=== PATIENT | female | born 1980 | race Caucasian/White ===

== ENCOUNTER 2017-09-05 16:36 | Emergency (ER) | payer MEDICAID ==
[~2017-09-05 16:36] MED LIST: CYCL-343 PO; ETON1VAG7 VG; MET500 PO; PER PO
[2017-09-05] MEDS ORDERED: ARMTHY90PT PO (16:48)
--- NOTE | 2017-09-05 16:53 | ER Report ---
History and Physical Time Seen By MD: 16:47 Hx. of Stated Complaint: PT REPORTS VOMITING, CHILLS, FEVER, GENERAL PAIN/"SORE BONES" HPI/ROS CHIEF COMPLAINT: Fever and vomiting HISTORY OF PRESENT ILLNESS: 36-year-old female patient presents to emergency room with complaint of fever and vomiting. Patient states that this started today. Patient states that she woke up and has had body aches, fever, chills and vomiting. She states anytime she is trying to drink anything she has vomited back up. She states that she does not have any abdominal pain, however she feels she does have some tenderness in her pancreas, liver. She states she also has some joint pains. 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 Patient has not taken any medication for this. REVIEW OF SYSTEMS: Respiratory: No cough, no dyspnea. Cardiovascular: No chest pain, no palpitations. Gastrointestinal: As noted above. Musculoskeletal: No back pain. Allergies: Coded Allergies: Sulfa (Sulfonamide Antibiotics) (Verified Allergy, Unknown, 09/05/17) Home Meds Active Scripts Ondansetron (ZOFRAN ODT) 4 Mg Tab.rapdis, 4 MG PO Q6H Y for NAUSEA/VOMITING, # 20 TAB.VERNON Prov:AR SHEEHAN [facility] 09/05/17 Reported Medications Thyroid (ARMOUR THYROID) 90 Mg Tab, 90 MG PO QDAY, TAB 09/05/17 Cyclobenzaprine Hcl (FLEXERIL) 10 Mg Tablet, 10 MG PO TID 09/04/12 Oxycodone/Acetaminophen (OXYCODONE/ACETAMINOPHEN 5MG/325 MG) 5 Mg/325 Mg Tab, 1 - 2 TAB PO Q6H 09/04/12 Discontinued Reported Medications Metformin Hcl (GLUCOPHAGE (OR EQUIV)) 500 Mg Tab, 500 MG PO BID 09/04/12 Etonogestrel/Ethinyl Estradiol (Nuvaring Vaginal Ring) 1 Vag.ring Vag.ring, 1 VAG.RING VG MONTHLY 09/04/12 Past Medical/Surgical History Patient has a past medical history of sleep apnea, PCOS, back pain, goiter. Patient has a surgical history of D&C, tonsillectomy. Reviewed Nurses Notes: Yes Hx Smoking: Yes Hx Substance Use Disorder: No Hx Alcohol Use: No Constitutional Vital Sign - Last 24 Hours 09/05/17 09/05/17 09/05/17 09/05/17 16:41 16:42 16:51 17:00 Temp 98.5 Pulse 119 112 Resp 12 B/P (MAP) 139/82 139/82 (101) 126/84 (98) Pulse Ox 96 94 O2 Delivery Room Air 09/05/17 09/05/17 09/05/17 09/05/17 17:06 17:21 17:36 17:51 Pulse 110 110 110 108 Pulse Ox 93 92 94 95 09/05/17 09/05/17 09/05/17 18:00 18:06 18:23 Pulse 109 B/P (MAP) 104/66 (79) 112/63 (79) Pulse Ox 96 Intake and Output 09/05/17 09/05/17 09/06/17 15:00 23:00 07:00 Intake Total 1000 ml Balance 1000 ml Physical Exam General Appearance: The patient is alert, has no immediate need for airway protection and no current signs of toxicity. ENT: Tympanic membranes are pearly-monae, auditory canals are patent, mucous membranes are moist. Respiratory: Chest is non tender, lungs are clear to auscultation. Cardiac: regular rate and rhythm Gastrointestinal: Abdomen is soft and non tender, no masses, bowel sounds are hypoactive. Musculoskeletal: Neck: Neck is supple and non tender. Extremities have full range of motion and are non tender. Skin: No rashes or lesions. DIFFERENTIAL DIAGNOSIS: After history and physical exam differential diagnosis was considered for nausea and vomiting including but not limited to gastroenteritis, gastritis, appendicitis, and medication side effect. Medical Decision Making Data Points Result Diagram: 09/05/17 1649 09/05/17 1649 Laboratory Hematology Test 09/05/17 16:49 09/05/17 17:05 Red Blood Count 5.22 M/uL (4.17-5.56) Mean Corpuscular Volume 86.9 fL (80.0-96.0) Mean Corpuscular Hemoglobin 30.0 pg (26.0-33.0) Mean Corpuscular Hemoglobin Concent 34.6 g/dL (32.0-36.0) Red Cell Distribution Width 14.1 % (11.5-14.5) Mean Platelet Volume 8.5 fL (7.2-11.1) Neutrophils (%) (Auto) 90.7 % (39.4-72.5) Lymphocytes (%) (Auto) 4.6 % (17.6-49.6) Monocytes (%) (Auto) 3.8 % (4.1-12.4) Eosinophils (%) (Auto) 0.7 % (0.4-6.7) Basophils (%) (Auto) 0.2 % (0.3-1.4) Nucleated RBC Relative Count (auto) 0.0 /100WBC Neutrophils # (Auto) 8.1 K/uL (2.0-7.4) Lymphocytes # (Auto) 0.4 K/uL (1.3-3.6) Monocytes # (Auto) 0.3 K/uL (0.3-1.0) Eosinophils # (Auto) 0.1 K/uL (0.0-0.5) Basophils # (Auto) 0.0 K/uL (0.0-0.1) Nucleated RBC Absolute Count (auto) 0.00 K/uL Urine Color Yellow Urine Clarity Clear Urine pH 5.0 pH (4.8-9.5) Urine Specific Marion 1.028 Urine Protein Negative mg/dL (NEGATIVE) Urine Glucose (UA) Negative mg/dL (NEGATIVE) Urine Ketones Trace mg/dL (NEGATIVE) Urine Blood Negative (NEGATIVE) Urine Nitrite Negative (NEGATIVE) Urine Bilirubin Negative (NEGATIVE) Urine Urobilinogen Negative mg/dL (0.2-1.9) Urine Leukocyte Esterase Negative (NEGATIVE) Urine RBC 1 /HPF (0-2/HPF) Urine WBC 1 /HPF (0-5/HPF) Urine Squamous Epithelial Cells Many /LPF (</=FEW) Urine Bacteria Negative /HPF (NONE-FEW) Urine Mucus None /HPF (NONE-FEW) Sodium Level 139 mmol/L (137-145) Potassium Level 3.5 mmol/L (3.5-5.0) Chloride Level 102 mmol/L (98-107) Carbon Dioxide Level 17 mmol/L (22-31) Blood Urea Nitrogen 9 mg/dl (7-18) Creatinine 0.80 mg/dl (0.52-1.04) Glomerular Filtration Rate Calc > 60.0 Random Glucose 120 mg/dl (75-110) Lactate 3.2 mmol/L (0.7-2.1) Calcium Level 9.5 mg/dl (8.4-10.2) Total Bilirubin 1.6 mg/dl (0.2-1.3) Aspartate Amino Transf (AST/SGOT) 23 U/L (0-35) Alanine Aminotransferase (ALT/SGPT) 27 U/L (0-56) Alkaline Phosphatase 56 U/L (0-126) Total Protein 7.3 gm/dl (6.3-8.2) Albumin 4.5 g/dl (3.5-5.0) Amylase Level < 30 U/L (0-110) Lipase 17 U/L (23-300) Human Chorionic Gonadotropin, Qual Negative (NEGATIVE) Influenza Virus Type A (PCR) Negative (NEGATIVE) Influenza Virus Type B (PCR) Negative (NEGATIVE) Chemistry Test 09/05/17 16:49 09/05/17 17:05 White Blood Count 8.9 k/uL (4.5-11.0) Red Blood Count 5.22 M/uL (4.17-5.56) Hemoglobin 15.7 g/dL (12.0-16.0) Hematocrit 45.4 % (34.0-47.0) Mean Corpuscular Volume 86.9 fL (80.0-96.0) Mean Corpuscular Hemoglobin 30.0 pg (26.0-33.0) Mean Corpuscular Hemoglobin Concent 34.6 g/dL (32.0-36.0) Red Cell Distribution Width 14.1 % (11.5-14.5) Platelet Count 181 K/uL (150-450) Mean Platelet Volume 8.5 fL (7.2-11.1) Neutrophils (%) (Auto) 90.7 % (39.4-72.5) Lymphocytes (%) (Auto) 4.6 % (17.6-49.6) Monocytes (%) (Auto) 3.8 % (4.1-12.4) Eosinophils (%) (Auto) 0.7 % (0.4-6.7) Basophils (%) (Auto) 0.2 % (0.3-1.4) Nucleated RBC Relative Count (auto) 0.0 /100WBC Neutrophils # (Auto) 8.1 K/uL (2.0-7.4) Lymphocytes # (Auto) 0.4 K/uL (1.3-3.6) Monocytes # (Auto) 0.3 K/uL (0.3-1.0) Eosinophils # (Auto) 0.1 K/uL (0.0-0.5) Basophils # (Auto) 0.0 K/uL (0.0-0.1) Nucleated RBC Absolute Count (auto) 0.00 K/uL Urine Color Yellow Urine Clarity Clear Urine pH 5.0 pH (4.8-9.5) Urine Specific Marion 1.028 Urine Protein Negative mg/dL (NEGATIVE) Urine Glucose (UA) Negative mg/dL (NEGATIVE) Urine Ketones Trace mg/dL (NEGATIVE) Urine Blood Negative (NEGATIVE) Urine Nitrite Negative (NEGATIVE) Urine Bilirubin Negative (NEGATIVE) Urine Urobilinogen Negative mg/dL (0.2-1.9) Urine Leukocyte Esterase Negative (NEGATIVE) Urine RBC 1 /HPF (0-2/HPF) Urine WBC 1 /HPF (0-5/HPF) Urine Squamous Epithelial Cells Many /LPF (</=FEW) Urine Bacteria Negative /HPF (NONE-FEW) Urine Mucus None /HPF (NONE-FEW) Glomerular Filtration Rate Calc > 60.0 Lactate 3.2 mmol/L (0.7-2.1) Calcium Level 9.5 mg/dl (8.4-10.2) Total Bilirubin 1.6 mg/dl (0.2-1.3) Aspartate Amino Transf (AST/SGOT) 23 U/L (0-35) Alanine Aminotransferase (ALT/SGPT) 27 U/L (0-56) Alkaline Phosphatase 56 U/L (0-126) Total Protein 7.3 gm/dl (6.3-8.2) Albumin 4.5 g/dl (3.5-5.0) Amylase Level < 30 U/L (0-110) Lipase 17 U/L (23-300) Human Chorionic Gonadotropin, Qual Negative (NEGATIVE) Influenza Virus Type A (PCR) Negative (NEGATIVE) Influenza Virus Type B (PCR) Negative (NEGATIVE) Urinalysis Test 09/05/17 16:49 Urine Color Yellow Urine Clarity Clear Urine pH 5.0 pH (4.8-9.5) Urine Specific Marion 1.028 Urine Protein Negative mg/dL (NEGATIVE) Urine Glucose (UA) Negative mg/dL (NEGATIVE) Urine Ketones Trace mg/dL (NEGATIVE) Urine Blood Negative (NEGATIVE) Urine Nitrite Negative (NEGATIVE) Urine Bilirubin Negative (NEGATIVE) Urine Urobilinogen Negative mg/dL (0.2-1.9) Urine Leukocyte Esterase Negative (NEGATIVE) Urine RBC 1 /HPF (0-2/HPF) Urine WBC 1 /HPF (0-5/HPF) Urine Squamous Epithelial Cells Many /LPF (</=FEW) Urine Bacteria Negative /HPF (NONE-FEW) Urine Mucus None /HPF (NONE-FEW) EKG/Imaging Imaging INDICATION: vomiting, abdominal pain. DATE: 09/05/2017 5:53 PM. TECHNIQUE: ACUTE ABDOMEN SERIES 3 VIEW COMPARISON: None FINDINGS: The chest is clear. No free air under the diaphragm. Normal sized stomach bubble. Nonobstructive bowel gas pattern. Normal volume of stool and gas within the colon. IMPRESSION: Radiograph likely unremarkable abdomen and chest. Report Dictated By: Vern Liu MD at 09/05/2017 5:53 PM Report E-Signed By: Vern Liu MD at 09/05/2017 5:55 PM ED Course/Re-evaluation ED Course Patient was admitted to exam room, history and physical were obtained. Differential diagnoses were considered. Examination patient does feel warm to the touch. She does not have any tenderness to the abdomen. An IV was started, CBC, CMP, lactate were drawn. Patient had an elevated lactate of 3.2, however she did have normal vital signs, although she was tachycardic at 108 beats per minute. CBC showed a white count of 8000 with a left shift 90% neutrophils. Urinalysis was unremarkable, electrolytes were also unremarkable. An acute abdominal x-ray was done which showed no acute findings. I discussed the results with the patient. I believe that we are looking at a viral gastroenteritis. Patient received a liter of normal saline. I believe lactate is elevated secondary to dehydration. We'll go ahead and discharge patient home at this time. She is return to the emergency room if condition worsens. She is to increase fluid intake, patient was prescribed Zofran to help with the nausea and vomiting. Patient verbalized understanding and agreement with plan. Decision to Disposition Date: September 05, 2017 Decision to Disposition Time: 18:17 Depart Departure Latest Vital Signs Vital Signs Date Time Temp Pulse Resp B/P (MAP) Pulse Ox O2 Delivery O2 Flow Rate FiO2 09/05/17 18:23 112/63 (79) 09/05/17 18:06 109 96 09/05/17 16:41 98.5 12 Room Air Impression: Primary Impression: Gastroenteritis Condition: Improved Disposition: HOME OR SELF-CARE New Scripts Ondansetron (ZOFRAN ODT) 4 Mg Tab.rapdis 4 MG PO Q6H Y for NAUSEA/VOMITING, #20 TAB.VERNON Prov: AR SHEEHAN 09/05/17 Patient Instructions: Gastroenteritis (ED) Additional Instructions: Increase fluid intake. Get plenty of rest. Follow up with your primary care provider in the next week. Return to the ER if condition worsens. You may take Pepto-Bismol as needed for abdominal pain. AR SHEEHAN September 05, 2017 16:53
[2017-09-05] MEDS ORDERED: NS(*) 0.9% 1000 ML BAG 1,000 ML IV ONE (16:58)
[2017-09-05] MEDS ORDERED: ONDANSETRON 4 MG/2 ML VIAL IVP ONE (17:00)
[2017-09-05 17:18] LABS: PLATELET COUNT, AUTOMATED 181 K/uL (150-450)
--- NOTE | 2017-09-05 18:00 | RADIOLOGY IMAGING REPORT ---
FACILITY: [facility] - [place] PATIENT NAME: Es Reyna : 1980 MR: [id number] V: [id number] EXAM DATE: ORDERING PHYSICIAN: AR SHEEHAN TECHNOLOGIST: Location: [facility] - [place] Patient: Es Reyna : 1980 Visit/Account:[id number] Date of Sevice: 09/05/2017 INDICATION: vomiting, abdominal pain. DATE: 09/05/2017 5:53 PM. TECHNIQUE: ACUTE ABDOMEN SERIES 3 VIEW COMPARISON: None FINDINGS: The chest is clear. No free air under the diaphragm. Normal sized stomach bubble. Nonobstru ctive bowel gas pattern. Normal volume of stool and gas within the colon. IMPRESSION: Radiograph likely unremarkable abdomen and chest. Report Dictated By: Vern Liu MD at 09/05/2017 5:53 PM Report E-Signed By: Vern Liu MD at 09/05/2017 5:55 PM WSN:[id number]
[2017-09-05] MEDS ORDERED: ONDA4TAB PO (18:16)
[2017-09-05 18:23] VITALS: BP 112/63
== END 2017-09-05 18:25 | disposition home or self-care (01) ==
LOC: ER 16:40
DX: K52.9 Noninfective gastroenteritis and colitis, unspecified (principal)
CPT/HCPCS: 74022; 81001; 82150; 83605; 83690; 84703; 85025; 87502; 96361; 96374; 99284; J2405; J7030; 82040; 82247; 82310; 82374; 82435; 82565; 82947; 84075; 84132; 84155; 84295; 84450; 84460; 84520

== ENCOUNTER 2018-01-25 01:22 | Outpatient (RCR) | payer MEDICAID ==
[~2018-01-25 01:22] MED LIST changes: +ARMTHY90PT PO; +BUPR-474 PO; +ONDA4TAB PO; +OXYC-865 PO; +THY60 PO; +TIZA2CAP3 PO; +TRAM-420 PO
[2018-01-25 09:57] LABS: INR 0.96
--- NOTE | 2018-01-25 11:12 | RADIOLOGY IMAGING REPORT ---
FACILITY: [facility] PATIENT NAME: Es Reyna : 1980 MR: [id number] V: [id number] EXAM DATE: ORDERING PHYSICIAN: FREDI LEBRON TECHNOLOGIST: [facility] Patient: Es Reyna : 1980 Visit/Account:[id number] Date of Sevice: 01/25/2018 THYROID HISTORY: Thyroid goiter with thyroid toxicosis COMPARISON: None. FINDINGS: SIZE: Enlarged Right lobe: 7.8 x 4.1 x 5 cm Left lobe: 3.5 x 1.4 x 1.2 cm Isthmus: 4 mm PARENCHYMA: Diffusely heterogeneous on the left NODULES: Right lobe: * In the mid to superior pole the right lobe there is a 5.4 x 4.7 x 4.5 cm complex solid nodule with lobular margins.. * Inferior aspect of the right lobe there is a 2.9 x 3.3 x 2.8 cm lobular hypoechoic mass Left lobe: * None discrete. Isthmus: * None discrete. VASCULARITY: Within normal limits. ADDITIONAL FINDINGS: None. IMPRESSION: There are two solid masses encompassing the enlarged right lobe. The largest is in the mid to superi or pole measuring 5.4 cm in diameter. The inferior pole mass measures 3.3 cm. Ultrasound-guided fin e-needle aspiration recommended of these two nodules Left lobe appears diffusely heterogeneous although discrete nodules not seen REFERENCE: 2015 [place] [employer] Management Guidelines for Adult Patients with Thyroid Nodules and D ifferentiated Thyroid Cancer: The [place] [employer] Guidelines Task Force on Thyroid Nodul es and Differentiated Thyroid Cancer. SONOGRAPHIC PATTERNS: * Benign: Purely cystic nodules (no solid component); estimated risk of malignancy <1 percent; no bi opsy recommended. * Very Low Suspicion: Spongiform or partially cystic nodules without any of the sonographic features described in low, intermediate, or high suspicion patterns; estimated risk of malignancy <3 percent; consider FNA at > 2 cm (Observation without FNA is also a reasonable option). * Low Suspicion: Isoechoic or hyperechoic solid nodule, or partially cystic nodule with eccentric so lid areas, without microcalcification, irregular margin or ETE (extra-thyroidal extension), or taller than wide shape; estimated risk of malignancy 5-10 percent; recommend FNA at >1.5 cm. * Intermediate Suspicion: Hypoechoic solid nodule with smooth margins without microcalcifications, E TE (extra-thyroidal extension), or taller than wide shape; estimated risk of malignancy 10-20 percent ; recommend FNA at > 1 cm. * High Suspicion: Solid hypoechoic nodule or solid hypoechoic component of a partially cystic nodule with one or more of the following features: irregular margins (infiltrative, microlobulated), microc alcifications, taller than wide shape, rim calcifications with small extrusive soft tissue component, evidence of ETE (extra-thyroidal extension); estimated risk of malignancy >70-90 percent; recommend FNA at > 1 cm. NOTES: * Although a sonographically suspicious subcentimeter thyroid nodule without evidence of extrathyroi jose extension or sonographically suspicious lymph nodes may be observed with close sonographic follow -up rather than pursuing immediate FNA, patient age and preference may modify decision-making. A > 50% interval increase in nodule volume and/or development of new suspicious sonographic features are felt to be a valid reasons for potential re-aspiration of a nodule previously shown to have benig n FNA cytology. Report Dictated By: Patricia Soliz MD at 01/25/2018 11:04 AM Report E-Signed By: Patricia Soliz MD at 01/25/2018 11:08 AM WSN:[email or web address]
--- NOTE | 2018-01-27 11:51 | RADIOLOGY IMAGING REPORT ---
FACILITY: [facility] - [place] PATIENT NAME: Es Reyna : 1980 MR: [id number] V: [id number] EXAM DATE: ORDERING PHYSICIAN: FREDI LEBRON TECHNOLOGIST: Location: [facility] - [place] Patient: Es Reyan : 1980 Visit/Account:[id number] Date of Sevice: 01/27/2018 Exam type: THYROID BIOPSY FINE NEEDLE ASP History: Two right-sided thyroid nodules Comparison: January 25, 2018. Findings: Informed consent was obtained. The right-sided the patient's neck was prepped and draped in usual st erile fashion. Local anesthesia was accomplished 1% lidocaine. Under sonographic guidance four 25-g auge FNA biopsies were obtained through each of the two dominant right thyroid nodules. The samples were given to the tomography technologist for processing. The procedure was accomplished without appa rent complication IMPRESSION: 1. Successful sonographically guided thyroid biopsy of two right-sided thyroid nodules Report Dictated By: Patricia Soliz MD at 01/27/2018 11:45 AM Report E-Signed By: Patricia Soliz MD at 01/27/2018 11:47 AM WSN:[email or web address]
[2018-02-08] MEDS ORDERED: implanon (11:54)
[2018-02-09] MEDS ORDERED: TIZA4CAP3 PO (08:17)
[2018-02-09] MEDS ORDERED: OXYC-870 PO (08:17)
[2018-02-09] MEDS ORDERED: THYR60TA25 PO (08:17)
[2018-02-12] MEDS ORDERED: OXYC20TA99 PO (06:46)
[2018-02-12] MEDS ORDERED: DOCU-416 PO (06:46)
== END 2018-03-01 ==
LOC: US 01:22 → EDSTATUS 14:02
PROVIDERS: ATTEND Surgery
DX: Z01.812 Encounter for preprocedural laboratory examination (principal); E04.0 Nontoxic diffuse goiter
CPT/HCPCS: 10022; 36415; 76536; 76942; 85610; 88104; 88172

== ENCOUNTER → 2018-02-09 | Outpatient (CLI) | payer MEDICAID ==
[~2018-02-09] MED LIST changes: +OXYC-870 PO; +THYR60TA25 PO; +TIZA4CAP3 PO; +implanon
--- NOTE | 2018-02-09 16:55 | RADIOLOGY IMAGING REPORT ---
FACILITY: [facility] - [place] PATIENT NAME: Es Reyna : 1980 MR: [id number] V: [id number] EXAM DATE: ORDERING PHYSICIAN: FRDEI LEBRON TECHNOLOGIST: Location: [facility] Patient: Es Reyna : 1980 Visit/Account:[id number] Date of Sevice: 02/09/2018 Exam type: NECK SOFT TISSUE History: Pre-op testing to look at goiter in relation to trachea Comparison: Thyroid ultrasound January 25, 2018. Findings: The trachea is markedly deviated towards the left. On the AP view the right lateral wall of the trac hea is deviated approximately 1.46 cm towards the left from midline. The uppermost portion of the tr achea demonstrates less mass effect although is also deviated towards the left with the right lateral wall deviated approximately 5.5 mm towards the left from midline. IMPRESSION: 1. Marked leftward deviation of the trachea from patient's enlarged thyroid goiter Report Dictated By: Patricia Soliz MD at 02/09/2018 4:47 PM Report E-Signed By: Patricia Soliz MD at 02/09/2018 4:52 PM WSN:[email or web address]
== END ==
LOC: RAD 15:52
PROVIDERS: ATTEND Surgery
DX: E04.0 Nontoxic diffuse goiter (principal)
CPT/HCPCS: 70360

== ENCOUNTER 2018-02-11 00:49 | Observation (INO) | payer MEDICAID ==
[2018-02-11] VITALS (8 sets, daily range): BP systolic 107–138; BP diastolic 63–90
[~2018-02-11] VITALS: Ht 170.2 cm; Wt 95.3 kg
[2018-02-11] MEDS ORDERED: MIDAZOLAM 2 MG/2 ML VIAL IVP PRN (11:00)
[2018-02-11] MEDS ORDERED: NORMOSOL R SOLN(*) 1000 ML BAG 1,000 ML IV PRN (11:00)
[2018-02-11] MEDS ORDERED: LIDOCAINE/SOD BICARB 8.4% SYR ID ONE (11:00)
[2018-02-11] MEDS ORDERED: FAMOTIDINE 20 MG TAB PO ONE (11:00)
[2018-02-11] MEDS ORDERED: ceFAZolin(*) 2GM/D5W 50ML 50 ML IVPB ONE (11:00)
[2018-02-11 11:51] LABS: PLATELET COUNT, AUTOMATED 233 K/uL (150-450)
[2018-02-11] MEDS ORDERED: fentaNYL CITR 250 MCG/5 ML AMP ONE ×4 (12:11→16:27)
[2018-02-11] MEDS ORDERED: LIDOCAINE 2% IV 100 MG/5ML SYR ONE (12:12)
[2018-02-11] MEDS ORDERED: PROPOFOL EMUL(*) 10MG/ML 20 ML 20 ML ONE ×2 (12:12→13:16)
[2018-02-11] MEDS ORDERED: KETAMINE HCL 200 MG/20 ML MDV ONE ×5 (13:24→17:29)
[2018-02-11] MEDS ORDERED: DEXAMETHASONE SOD 4 MG/ML VIAL ONE (13:28)
[2018-02-11] MEDS ORDERED: ROPIVACAINE 0.5% 20 ML VIAL ONE (13:29)
[2018-02-11] MEDS ORDERED: ONDANSETRON 4 MG/2 ML VIAL ONE ×2 (13:29→19:57)
[2018-02-11] MEDS ORDERED: GELATIN SPONGE 12-7MM ONE (13:29)
[2018-02-11] MEDS ORDERED: SUGAMMADEX SOD 500 MG/5 ML SDV ONE (13:32)
[2018-02-11] MEDS ORDERED: ACETAMINOPHEN(*)1000 MG/100 ML 100 ML IVPB ONE (14:37)
[2018-02-11] MEDS ORDERED: fentaNYL CITR 100 MCG/2 ML AMP ONE ×5 (18:09→19:47)
[2018-02-11] MEDS ORDERED: PROMETHAZINE 25 MG/ML 1 ML AMP ONE (18:46)
[2018-02-11] MEDS ORDERED: HYDROmorphone HCL 2 MG/ML SDV ONE (19:10)
[2018-02-11] MEDS ORDERED: FLUSH 10 ML SYR IVP PRN (19:15)
[2018-02-11] MEDS ORDERED: ONDANSETRON 4 MG/2 ML VIAL IVP PRN (19:15)
[2018-02-11] MEDS ORDERED: HYDROmorphone HCL 2 MG/ML SDV IVP PRN (19:15)
[2018-02-11] MEDS ORDERED: traMADol 50 MG TAB PO PRN (19:15)
[2018-02-11] MEDS ORDERED: NALOXONE HCL 0.4 MG/ML VIAL IVP PRN (19:15)
[2018-02-11 19:32] LABS: PLATELET COUNT, AUTOMATED 244 K/uL (150-450)
--- NOTE | 2018-02-11 19:36 | Post Operative Progress Note ---
Post Operative Progress Note Date: Feb 11, 2018 Time: 19:25 Surgeon: Efren Dictation number: [id number] Anesthesia: GETA by Dr. Sefl Pre-Op Diagnosis: Multinodule Goiter Post-Op Diagnosis: KWAN Findings: Very large, orange-size, right thyroid lobe; normal appearing left thyroid lobe Procedure(s): Total thyroidectomy Specimen Removed:(May be N/A): 1) left thyroid lobe 2) right thyroid lobe Complications: None Fluids: see anesthesia record UOP: 800mL Estimated Blood Loss: 650mL Date OP Note Dictated: Feb 11, 2018 Time OP Note Dictated: 19:27 FREDI LEBRON MD Feb 11, 2018 19:36
[2018-02-11] MEDS ORDERED: SCOPOLAMINE 1.5 MG PATCH TD ONE ×2 (20:03→20:05)
[2018-02-11] MEDS: NS(*) 0.9% 1000 ML BAG 1,000 ML IV PRN (20:20)
[2018-02-11] MEDS: MORPHINE 4 MG/ML SDV IVP PRN ×3 (20:22→22:50)
[2018-02-11] MEDS: FAMOTIDINE 20 MG TAB PO SCH (20:49)
[2018-02-11] MEDS: CALCIUM CARBONATE 600 MG TAB PO SCH (20:49)
[2018-02-11] MEDS: DOCUSATE SODIUM 100 MG CAP PO SCH (20:49)
--- NOTE | 2018-02-11 21:17 | OPERATIVE REPORT 1 ---
EVENT DATE: February 11, 2018 SURGEON: Morgan Schwartz MD ANESTHESIOLOGIST: Jace Self MD ANESTHESIA: General endotracheal anesthesia. PREOPERATIVE DIAGNOSIS Multinodular goiter. POSTOPERATIVE DIAGNOSIS Multinodular goiter. PROCEDURE PERFORMED Total thyroidectomy. COMPLICATIONS None. CONDITION Stable. BLOOD LOSS 650 mL URINE OUTPUT 800 mL SPECIMENS 1. Left thyroid lobe. 3. Right thyroid lobe. FINDINGS This patient had a very large, orange size right thyroid lobe that was pushing the trachea to the left. The left thyroid lobe appeared unremarkable. INDICATIONS This is a 37-year-old female who presented to my office with a very large thyroid which was immediately evident just upon looking at her and confirmed on exam. I had her sent for ultrasound-guided FNA biopsies of a couple thyroid nodules, and these were atypical and indeterminant. She was, however, having symptoms including feelings of compression on her airway and esophagus, and she was requesting to have her thyroid removed. DESCRIPTION OF PROCEDURE Patient was brought to the operating room and placed supine on the operating table. General endotracheal anesthesia was administered, and she was placed in a reclining beach chair configuration with her neck extended. The [facility] neuromonitoring system was set up, and the electrodes were inserted into her dermis after rubbing the skin with alcohol just below her sternal notch. The whole system was set up and tested to ensure it was functioning. Her neck was then prepped and draped in a sterile fashion. Timeout was completed. Then, I marked the skin in a skin crease just above the sternal notch, then anesthetized the skin in this area, and made a Carol-type 6 cm incision in this skin crease. I dissected through the dermis and subcutaneous fat and progressively dissected down through the platysma muscle and created subplatysmal flaps above the thyroid cartilage down to the sternal notch, and I divided the median raphe between the strap muscles. I then worked on the right thyroid lobe first and created the plane between the strap muscles and the thyroid lobe. The lobe was very big, and exposure was difficult in this patient. Ultimately, I divided the strap muscles from medial to lateral to open up more room to dissect. Ultimately, I was able to get around the lobe, and there was even a mediastinal component to the right lobe which I was able to free up just with blunt dissection without any problems. I divided the inferior pole vessels with a Harmonic scalpel, and also with some struggle identified the superior pole vessels, but was able to divide them with the Harmonic scalpel. After working for some time on the right lobe, I turned my attention to the left lobe and raised the strap muscles up off the left lobe, but also ended up dividing these in order to improve exposure because the right lobe was coming so far into the left side of her neck that there was not much room for me to retract the tissues out of the way to provide adequate exposure, but this was much improved by dividing the strap muscles. I then was able to get around the left lobe much easier than the right because it was a fairly normal-looking left lobe. I identified the inferior pole vessels which I divided with the Harmonic scalpel. I identified the superior pole vessels which I divided with the Harmonic scalpel. I progressively medialized the left lobe, but because the right lobe was so intrusive into the left side of her neck, ultimately in order to assist with the dissection on the left, I divided the isthmus just in front of the trachea. I then did also a combination of medial to lateral and lateral to medial dissection by dividing the ligament of Weber medially and also connecting the dissection from anterior to the trachea up around the superior pole. I used the nerve monitor multiple times throughout the case and identified the recurrent laryngeal nerve. I also identified the superior and inferior parathyroid glands, and these were left in situ and preserved in this patient on the left side. Ultimately, I was able to get around and remove the left thyroid lobe from the patient's neck. I then returned to my dissection on the right side and started a combination a medial to lateral and lateral to medial dissection with some struggle just due to the sheer size of the right thyroid lobe. I ultimately was able to get it freed up, and the nerve was identified on this side using the nerve monitor and visualization as well. The nerve was visualized on both sides. I did not definitively identify the parathyroid glands in her right neck, but did not worry so much about this as the superior and inferior glands were identified in the left neck. Ultimately, I was able to remove the gland. This was a fairly bloody case with diffuse oozing. At the end of the case with irrigation and drying of the neck, there was no bleeding anywhere, and it was stone cold dry, but the entire case was a struggle due to the size of her right thyroid lobe and due to the oozing all around the dissection planes around her right thyroid lobe. The right thyroid lobe was passed off the field and sent to Pathology. I irrigated and dried her neck and again confirmed that I visualized the recurrent laryngeal nerve on both sides and also the left superior and inferior parathyroid glands, and they looked perfused. I then placed a 10-Georgian round drain into her neck through the suprasternal skin, and this was sewn to the skin with a 2-0 silk suture. I then reapproximated the deep strap muscles with interrupted 3-0 Vicryl sutures, and then I reapproximated the superficial strap muscles with running 3-0 Vicryl sutures. I then reapproximated the median raphe with interrupted 3-0 Vicryl sutures and then reapproximated the platysma muscle with interrupted 3-0 Vicryl sutures. The skin was closed with interrupted 3-0 Vicryl deep dermal sutures and 4-0 Monocryl running subcuticular sutures. Her skin was cleaned and dried, and I applied Steri-Strips longitudinally along the incision. I then placed drain gauze around the drain, which I then taped into place with Medipore tape. I then had Dr. Self extubate her, and we looked at her vocal cords with the GlideScope. They were symmetric and wide open, and she was breathing on her own. He then put in an LMA and gave her more time to wake up. Once she was awake, he then removed the LMA, and she was brought to the recovery room in good condition having tolerated the procedure without any apparent problems. ILIANA
[2018-02-12] VITALS: BP 122/87
[2018-02-12] MEDS: MORPHINE 4 MG/ML SDV IVP PRN ×4 (00:59→09:15)
[2018-02-12 01:00] VITALS: BP 114/79
[2018-02-12 02:00] VITALS: BP 94/54
[2018-02-12 06:13] LABS: PLATELET COUNT, AUTOMATED 203 K/uL (150-450)
[2018-02-12] MEDS: NS(*) 0.9% 1000 ML BAG 1,000 ML IV PRN (06:27)
[2018-02-12] MEDS ORDERED: THYROID 60 MG TAB PO SCH (06:30)
[2018-02-12 06:44] VITALS: BP 106/71
[2018-02-12] MEDS ORDERED: DOCU-416 PO (06:46)
[2018-02-12] MEDS ORDERED: OXYC20TA99 PO (06:46)
--- NOTE | 2018-02-12 06:52 | Short(Outpt) Discharge Summary ---
Discharge Summary Reason for Hosp/Final Diag: (1) Diffuse thyroid goiter without thyrotoxicosis Status: Chronic Hospital Course & Plan: Total thyroidectomy completed without any problems and pt has done well overnight. Drain removed, will d/c to home this morning. Departure Discharge to: Home, Self Care Discharge Instructions Home Meds Active Scripts Docusate Sodium (COLACE) 100 Mg Capsule, 1 CAP PO BID, #30 CAP 0 Refills TAKE WITH A FULL GLASS OF WATER Prov:FREDI LEBRON MD 02/12/18 Oxycodone Hcl (OXYCONTIN) 20 Mg Tab.er.12h, 1 TAB.SR PO Q12H, #10 TAB 0 Refills Prov:FREDI LEBRON MD 02/12/18 Reported Medications Tizanidine Hcl (TIZANIDINE HCL) 4 Mg Capsule, 4-8 MG PO QHS PRN for SLEEP, CAPSULE 02/09/18 Oxycodone Hcl/Acetaminophen (PERCOCET 10-325 MG TABLET) 1 Each Tablet, 1 EACH PO Q4-6H PRN for PAIN, TAB 02/09/18 Thyroid,Pork (ARMOUR THYROID) 60 Mg Tablet, 60 MG PO QDAY 02/09/18 [implanon] No Conflict Check, 1 02/08/18 Bupropion Hcl (WELLBUTRIN XL) 300 Mg Tab.er.24h, 300 MG PO QDAY, TAB 01/18/18 Tramadol Hcl (TRAMADOL HCL) 50 Mg Tablet, 50-100 MG PO Q4-6H, TAB 01/18/18 Discontinued Reported Medications Tizanidine Hcl (TIZANIDINE HCL) 2 Mg Capsule, 4 MG PO HS, CAPSULE 01/18/18 Thyroid (GLAZE CARRIER THYROID) 60 Mg Tab, 60 MG PO DAILY, TAB 01/18/18 Follow up Referrals: General Surgery - 02/24/18 @ Surgery, General with FREDI LEBRON MD You have a follow up appointment scheduled with Dr. Lebron on 02/24/18, at 4:15pm. Diet: Regular Activity: As Tolerated Special Instructions: You may remove the dressing over the drain site on 02/13/18, then you can shower. After showering, leave the incision and drain site open to air unless the drain site is draining in which case you can cover it with new dry guaze and change daily until there's no further drainage. Avoid any activity that involves straining or lifting more than 10 pounds for 1 week after surgery. Avoid taking any NSAIDS (ibuprofen, motrin, advil, aleve, naprosyn, naproxen, etc) for 1 week after surgery. Leave the steristrips in place over your incision until they fall off on their own. Do not immerse the incision or drain site for 2 weeks. Take the stool softener (Colace) until you're having regular, soft, bowel movements. If you haven't had a bowel movement by 02/14/18, start taking Miralax every day. If you need extra help with bowel movements you can also take Milk of Magnesia, 30mL twice a day. FREDI LEBRON MD Feb 12, 2018 06:52
[2018-02-12 07:27] VITALS: BP 108/67
[2018-02-12 08:28] VITALS: Ht 170.2 cm; Wt 95.3 kg
[2018-02-12] MEDS: CALCIUM CARBONATE 600 MG TAB PO SCH (08:28)
[2018-02-12] MEDS: DOCUSATE SODIUM 100 MG CAP PO SCH (08:28)
[2018-02-12] MEDS: FAMOTIDINE 20 MG TAB PO SCH (08:28)
[2018-02-12] MEDS ORDERED: buPROPion XL 150 MG TABCR PO SCH (09:00)
[2018-02-14] MEDS ORDERED: PATCH REMOVAL 1 EA TP ONE (20:00)
== END 2018-02-12 06:43 | disposition home or self-care (01) ==
LOC: OR 00:49 → MED 20:15 → INTOOBSV 20:15
PROVIDERS: ADMIT Surgery; ATTEND Surgery
DX: E04.2 Nontoxic multinodular goiter (principal)
CPT/HCPCS: 36415; 60240; 84443; 84703; 85025; 88307; G0378; J0131; J1100; J1170; J2001; J2270; J2405; J2550; J2704; J2795; J3010; J3490; J7030; 82310; 82374; 82435; 82565; 82947; 84132; 84295; 84520; J0690

== ENCOUNTER → 2018-03-11 | Outpatient (CLI) | payer MEDICAID ==
[2018-02-12 08:28] VITALS: BMI 32.9
[~2018-03-11] MED LIST changes: +DOCU-416 PO; +OXYC20TA99 PO
== END ==
LOC: LAB 09:17
PROVIDERS: ATTEND Surgery
DX: Z98.890 Other specified postprocedural states (principal)
CPT/HCPCS: 36415; 82310; 84443

== ENCOUNTER → 2018-03-19 | Outpatient (CLI) | payer MEDICAID ==
[2018-02-12 08:28] VITALS: BMI 32.9
== END ==
LOC: NUC 03:22
PROVIDERS: ATTEND Radiology Radiation Oncology
DX: Z02.9 Encounter for administrative examinations, unspecified (principal)

== ENCOUNTER 2018-03-30 09:14 | Outpatient (RCR) | payer MEDICAID ==
[2018-02-12 08:28] VITALS: Wt 84.9 kg
[2018-03-16 09:00] VITALS: BP 130/90
[2018-03-16 10:50] LABS: PLATELET COUNT, AUTOMATED 292 K/uL (150-450)
--- NOTE | 2018-03-16 11:33 | NUR ---
Pt completed initial HADS. Scores include 9:Depression (moderate), 8:Anxiety (moderate). Will check in at her next follow up with Dr. Alarcon.
--- NOTE | 2018-03-16 21:39 | TOBIN CONSULT ---
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 Tumor appears to be arising out of the right lobe of the thyroid, requiring total right and left thyroidectomy on surgical date of 02/12/18. Microscopic extracapsular extension is appreciated on the specimen. Exact tumor size could not be discerned by the pathologist since this was multifocal. The patient did have a preoperative ultrasound study which revealed leftward tracheal deviation from an enlarged thyroid gland. Complex thyroid nodule was noted in the mid superior pole of the right lobe measuring 5.4 x 4.7 x 4.5 cm. A lobular hypoechoic mass was noted in the inferior aspect of the right lobe of the thyroid gland measuring 2.9 x 3.3 x 2.8 cm. Left lobe benign. Stage T3a NX MX (final imaging will be performed within the next four to eight weeks to complete staging). HISTORY This is my first visit with the patient. She is referred to me by Dr. Schwartz for considerations of iodine-131 therapy for newly diagnosed thyroid malignancy with microscopic capsular penetration. According to the patient, she had a progressive enlargement of her thyroid gland after her last child. The growth was noted three to four years ago by the patient, and this subsequently produced just a minor tracheal deviation. The mass was ultimately the size of an orange, according to the patient, and grew rapidly within the last year. 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 She was placed on levothyroxine initially, but did not feel well on the medication, and was later switched to [place] Thyroid supplement at 90 mg q. day by her verbal report. 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 She did see Dr. Mcdaniel originally, who referred her to Dr. Schwartz with appropriate workup for the enlarging thyroid mass. The thyroid mass was evaluated with radiologic ultrasound which revealed two large nodules in the right lobe of the thyroid gland with size listed above. Patient was taken to the OR where the thyroid was removed by Dr. Schwartz on 02/11/18. I reviewed his operative note carefully. The patient went through surgery extremely well, and she has had no postoperative complications at this time. She denies any swallowing difficulties or any hoarseness. She is on [place] Thyroid at 60 mg at this time, and the medication will be discontinued following my visit this morning in preparation for the iodine-131 therapy. 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 No new bone pain. No progressive weight loss. Patient did ask me to check her left breast as she has noticed a thickening laterally in the breast and requests further evaluation today. Patient is being seen for initial consultation. MEDICATIONS 1. Tramadol 15 mg q.i.d. 2. Wellbutrin 300 mg extended release q. day. 3. Implanon implants left upper arm. ALLERGIES SULFA (rash, face swelling). PAST MEDICAL HISTORY 1. Mild depression. 2. Laurita thyroid disease. 3. Thyroid goiter with newly diagnosed follicular variant of papillary carcinoma of the thyroid. SOCIAL HISTORY Patient is presently living with her mother in [place]. She has three young children, ages 4, 6, and 7. 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 She does have a smoking history of one pack per day for 18 years, having quit five years ago. FAMILY HISTORY Notable for prostate cancer in a paternal grandfather who also had oropharyngeal cancer. Father had hypertension and brother kidney disease. SURGICAL HISTORY 1. Tonsillectomy 1992. 2. D and C. 3. Total thyroidectomy 02/11/18. PHYSICAL EXAMINATION GENERAL: Pleasant, 37-year-old female of medium build. VITALS: Weight 216. BP 132/90, pulse 94, respirations 16, O2 sat 98%. HEENT: Intraoral inspection is unremarkable. NECK: Lower neck inspection reveals a 4 cm surgical scar with some minor swelling. Good wound approximations. No nodularity. No palpable lymphadenopathy in the neck. LUNGS: Clear bilaterally. BREASTS: Performed. No dominant mass was appreciated. There is some nonspecific thickening in the upper-outer quadrant of the left breast which most likely is a cyst, but further radiographic evaluation will be requested. No gross organomegaly, mass, or tenderness. EXTREMITIES: No significant edema or cyanosis. NEUROLOGICAL: Intact. IMPRESSION This is a 37-year-old female with newly diagnosed intermediate risk follicular variant of papillary carcinoma. Microscopic capsular penetration was appreciated at the time of the total thyroidectomy, and the patient is an appropriate candidate for iodine-131 adjuvant therapy to lower the risk of local, regional, or systemic recurrence. Long-term prognosis should be excellent. PLAN 1. Per present guidelines which were reviewed this morning, the patient will have baseline CBC, CMP, and thyroglobulin tumor marker drawn today. 2. She will be asked to go off her [place] Thyroid for the next four to eight weeks. 3. Patient will be intentionally made hypothyroid. At the point the TSH reaches 30, the patient will receive an oral dose of 100 mCi of iodine-131 under my direction in nuclear medicine at [facility]. 4. Patient will restart thyroid supplement after 72 hours. 5. Patient will achieve a TSH in the target range of 0.1 to 0.5 ng/mL for the first five years following therapy for intermediate risk patients. 6. Baseline postsurgical CT scan of the neck and thorax at eight to 12 weeks will be obtained as well due to the diagnosis and the smoking history. 7. Patient will receive appropriate counseling in Nuclear Medicine regarding radiation precautions. She will be staying outside of the home after she receives the capsule, and she will be placed on a low-iodine diet. 8. All questions were answered to her satisfaction today over a 90-minute appointment. 9. I will have the patient follow up with our nurse practitioner at the [facility] in two to three weeks to go over the results of a left breast ultrasound and bilateral mammogram which will establish a new baseline for future comparison. 10. I went through potential acute late side effects and therapeutic alternatives of iodine-131 therapy, and signed consent was obtained for treatment today. Thank you for the referral and excellent records which accompanied the patient today for consultation. Please do not hesitate to contact me if there are questions regarding the above recommendations. ASHLEYD
[2018-03-30 09:52] VITALS: BP 116/75
--- NOTE | 2018-03-30 14:30 | PROCEDURE NOTE ---
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 Patient presenting with a complex thyroid mass with incidental malignancy detected at the time of total thyroidectomy for goiter with tracheal deviation. Patient underwent a total thyroidectomy by Dr. Schwartz on 02/11/18. PROCEDURE PERFORMED Oral administration of iodine-131 radioisotope. DESCRIPTION OF PROCEDURE Patient was appropriately made hypothyroid with TSH greater than 30. Her [place] Thyroid medicine was held the last several weeks. The patient reviewed radiation precautions with myself and Nuclear Medicine staff. Signed consent was obtained for treatment. The patient received an oral radioactive dose of 101.8 mCi of iodine-131 under direct supervision per [facility] guidelines. The patient will be isolated for the next five days. She will start on replacement therapy after 72 hours. I advised the patient to take levothyroxine 150 mcg q. day. She was previously on [place] Thyroid and requested a T3 agent as well, so I placed her on Cytomel at 5 mg q. day. In four to six weeks, the patient will be seen at the [facility] and have a TSH, free T4, and thyroglobulin tumor marker. Dose adjustments of levothyroxine will be made at that time based on her numbers and how she is feeling. She should be feeling back to normal within the next five to 10 days on an average. All questions were answered to her satisfaction. Long-term oncology surveillance will be set up after her next appointment. After the replacement doses are stable, refer her back to primary care for medical management. ILIANA
== END 2018-04-19 ==
LOC: SPU 09:14
PROVIDERS: ATTEND Radiology Radiation Oncology
DX: C73 Malignant neoplasm of thyroid gland (principal); F32.9 Major depressive disorder, single episode, unspecified; Z87.891 Personal history of nicotine dependence
CPT/HCPCS: 36415; 79005; 84443; 84702; 85025; 86800; 99202; A9517; A9528; 82040; 82247; 82310; 82374; 82435; 82565; 82947; 84075; 84132; 84155; 84295; 84450; 84460; 84520

== ENCOUNTER 2018-05-05 13:30 | Outpatient (RCR) | payer MEDICAID ==
[2018-02-12 08:28] VITALS: BMI 32.9
[2018-05-05 15:08] VITALS: BP 127/72
--- NOTE | 2018-05-11 13:41 | ONCOLOGY FOLLOW UP NOTE ---
EVENT DATE: May 11, 2017 CHIEF COMPLAINT Patient is here to go over the results of baseline laboratory studies, TSH and free T4 following iodine-131 therapy and surgery for recently diagnosed thyroid malignancy. ONCOLOGY HISTORY 1. Diagnosis of papillary carcinoma of the thyroid gland with follicular variant, size undetermined. Surgical date February 12, 2018. Microscopic extracapsular extension is appreciated on the specimen. 2. Patient initially presented with a complex thyroid mass with tracheal deviation. Clinical stage T3a Nx Mx. Final staging should be available within the next week after CT scan of the neck and thorax is available. 3. Patient underwent iodine-131 thyroid remnant ablation under my direction in March 2018. 4. Whole body MET scan on April 09, 2018, was negative. INTERVAL HISTORY Es was seen with her to go over the results of her whole body MET scan and to review her general clinical status. Overall, she is doing well and recovering nicely from surgery. She denies any hoarseness or dysphagia. She occasionally has a tingling sensation along her scar. Post iodine-131 thyroglobulin is now undetectable. The patient received 108 millicuries of iodine-131 on March 30, 2018. Whole body MET scan was dated April 09, 2018. Patient was placed on Synthroid replacement medication under my direction at 0.125 mg every day. She also initially requested Cytomel, which was placed at 5 mg daily. The latter is now on hold. She initially was on [place] Thyroid but I was able to convince her that the levothyroxine has a more consistent dose and we would be able to titrate her into the right range faster. Her TSH is appropriately suppressed at 0.08 (target is 0.03-0.3 in a thyroid cancer patient). Free T4 is normal at 1.4 (normal is 0.7-2.2 ng/dL). Labs were drawn on May 05, 2018. Patient denies any respiratory complaints or new or persistent bone pain. MEDICATIONS 1. Levothyroxine 0.125 mg daily. 2. Tramadol 15 mg q.i.d. 3. Wellbutrin 300 mg daily. ALLERGIES SULFA. PAST MEDICAL HISTORY 1. Thyroid carcinoma, presenting with complex goiter in 2018. 2. History of Laurita thyroid disease. 3. History of depression. SOCIAL HISTORY Patient is a clinical nursing manager. She is presently seeking gainful employment in [place] or [employer]. She has three young children ages 4, 6 and 7. Remote smoking history of one pack per day for 18 years, having quit five years ago. Her is presently not working as he injured his shoulder and had surgery recently. FAMILY HISTORY Paternal grandfather had oropharyngeal carcinoma. PAST SURGICAL HISTORY 1. Total thyroidectomy on February 11, 2018. 2. Tonsillectomy. PHYSICAL EXAMINATION GENERAL: Pleasant 37-year old female. VITAL SIGNS: KPS 90. Blood pressure 115/76, pulse 68, respirations 16, O2 sat 99% on room air. LUNGS: Clear bilaterally. CARDIOVASCULAR: Heart sounds regular. Surgical scar at midline is well healed. No regional lymphadenopathy or nodularity. EXTREMITIES: No edema or cyanosis. IMPRESSION Overall, I am very pleased with the patient's clinical status at this time. PLAN The patient will undergo baseline CT scan of the neck and thorax for future comparison. I would like to get that study obtained in the next two weeks and that will complete her staging assessment. She will then go to every six months oncology surveillance visits with myself or other providers with regular monitoring of her thyroglobulin tumor protein. Overall, I am very pleased with her clinical course to date. ASHLEYD
== END 2018-08-02 ==
LOC: SPU 13:30
PROVIDERS: ATTEND Radiology Radiation Oncology
DX: C73 Malignant neoplasm of thyroid gland (principal); F32.9 Major depressive disorder, single episode, unspecified; Z87.891 Personal history of nicotine dependence
CPT/HCPCS: 36415; 84439; 84443; 86800